=== PATIENT | female | born 1950 | race Caucasian/White ===

== ENCOUNTER 2023-04-27 10:06 | Observation (INO) | payer MEDICARE, BC ==
[2023-04-27 10:38] LABS: BASOPHILS ABSOLUTE AUTO 0.04 10^3/uL (0.00-0.10); BASOPHILS PERCENT AUTO 0.5 % (0.0-1.0); EOSINOPHILS ABSOLUTE AUTO 0.27 10^3/uL (0.10-0.30); EOSINOPHILS PERCENT AUTO 3.5 % (1.0-3.0); IMMATURE GRAN ABSOLUTE AUTO 0.01 10^3/uL (0.00-0.50); IMMATURE GRAN PERCENT AUTO 0.1 % (0.0-5.0); LYMPHOCYTES ABSOLUTE AUTO 2.04 10^3/uL (1.00-4.00); LYMPHOCYTES PERCENT AUTO 26.7 % (20.0-40.0); MEAN CORPUSCULAR HEMOGLOBIN 29.1 pg (27.0-31.0); MEAN CORPUSCULAR HGB CONC 33.3 g/dL (32.0-36.0); MEAN CORPUSCULAR VOLUME 87.2 fL (82.0-92.0); MEAN PLATELET VOLUME 10.5 fL (7.4-10.4); MONOCYTES ABSOLUTE AUTO 0.64 10^3/uL (0.10-0.80); MONOCYTES PERCENT AUTO 8.4 % (2.0-8.0); NEUTROPHILS ABSOLUTE AUTO 4.65 10^3/uL (2.50-7.00); NEUTROPHILS PERCENT AUTO 60.8 % (50.0-70.0); PLATELET COUNT,PLT 203 10^3/uL (150-400); RED BLOOD CELL COUNT 5.16 10^6/uL (3.80-5.50); RED CELL DISTRIBUTION WIDTH 13.7 % (11.5-14.5); WHITE BLOOD CELL COUNT,WBC 7.65 10^3/uL (5.00-10.00)
[2023-04-27 10:52] LABS: ALBUMIN 3.73 g/dL (3.40-5.00); BILIRUBIN TOTAL 0.3 mg/dL (0.2-1.0); CALCIUM 9.6 mg/dL (8.7-10.3); CARBON DIOXIDE,CO2 26.8 mmol/L (21.0-32.0); CREATININE 0.75 mg/dL (0.51-1.17); EST CRCL DRUG DOSING (CG) 62.8 mL/min; POTASSIUM,K 3.8 mmol/L (3.5-5.1); PROTEIN TOTAL,TP 7.6 g/dL (6.4-8.2)
[2023-04-27] MEDS ORDERED: hydrALAZINE 20 MG/ML SDV IVPUSH ONE ×3 (12:21→18:28)
[2023-04-27] MEDS ORDERED: Docusate Sodium 100 MG Cap PO PRN (14:34)
[2023-04-27] MEDS ORDERED: Ondansetron 4 MG/2 ML SDV IV PRN (14:34)
[2023-04-27] MEDS ORDERED: Sodium Chloride 0.9% 10 ML Syringe FLUSH PRN (14:34)
[2023-04-27] MEDS: Enoxaparin 40 MG/0.4 ML Syringe SUBCUT SCH (15:59)
[2023-04-27] MEDS: Spironolactone 25 MG Tab PO SCH (15:59)
[2023-04-27 17:00] LABS: HEMOGLOBIN A1C 5.9 % (4.3-5.7)
[2023-04-27 17:17] LABS: TSH ULTRASENSITIVE 3.215 uIU/mL (0.340-4.820)
[2023-04-27] MEDS: Acetaminophen 325 MG Tab PO PRN (21:16)
[2023-04-28 06:41] LABS: BASOPHILS ABSOLUTE AUTO 0.03 10^3/uL (0.00-0.10); BASOPHILS PERCENT AUTO 0.4 % (0.0-1.0); EOSINOPHILS ABSOLUTE AUTO 0.17 10^3/uL (0.10-0.30); EOSINOPHILS PERCENT AUTO 2.2 % (1.0-3.0); HEMATOCRIT 42.9 % (37.0-47.0); HEMOGLOBIN 14.6 g/dL (12.0-16.0); IMMATURE GRAN ABSOLUTE AUTO 0.02 10^3/uL (0.00-0.50); IMMATURE GRAN PERCENT AUTO 0.3 % (0.0-5.0); LYMPHOCYTES ABSOLUTE AUTO 1.74 10^3/uL (1.00-4.00); LYMPHOCYTES PERCENT AUTO 22.3 % (20.0-40.0); MEAN CORPUSCULAR HEMOGLOBIN 29.5 pg (27.0-31.0); MEAN CORPUSCULAR VOLUME 86.7 fL (82.0-92.0); MEAN PLATELET VOLUME 9.9 fL (7.4-10.4); MONOCYTES ABSOLUTE AUTO 0.66 10^3/uL (0.10-0.80); MONOCYTES PERCENT AUTO 8.4 % (2.0-8.0); NEUTROPHILS PERCENT AUTO 66.4 % (50.0-70.0); PLATELET COUNT,PLT 220 10^3/uL (150-400); RED BLOOD CELL COUNT 4.95 10^6/uL (3.80-5.50); WHITE BLOOD CELL COUNT,WBC 7.82 10^3/uL (5.00-10.00)
[2023-04-28 07:00] LABS: ANION GAP 12.3 mmol/L (5-15); CALCIUM 9.3 mg/dL (8.7-10.3); CARBON DIOXIDE,CO2 26.2 mmol/L (21.0-32.0); CREATININE 0.79 mg/dL (0.51-1.17); EST CRCL DRUG DOSING (CG) 59.62 mL/min; MAGNESIUM 1.9 mg/dL (1.8-2.4); POTASSIUM,K 3.5 mmol/L (3.5-5.1)
[2023-04-28] MEDS ORDERED: LEVOTHYROXINE 100 MCG PO SCH (07:30)
[2023-04-28] MEDS ORDERED: Levothyroxine 100 MCG Tab PO SCH (07:30)
[2023-04-28] MEDS: Acetaminophen 325 MG Tab PO PRN (07:34)
[2023-04-28] MEDS: Spironolactone 25 MG Tab PO SCH (08:04)
[2023-04-28] MEDS: Enoxaparin 40 MG/0.4 ML Syringe SUBCUT SCH (08:06)
[2023-04-28] MEDS ORDERED: HYDROCHLOROTHIAZIDE 25 MG PO SCH (09:00)
[2023-04-28] MEDS ORDERED: Metoprolol Succinate 50 MG Tab.ER PO SCH (09:00)
[2023-04-28] MEDS ORDERED: Losartan 50 MG Tab PO SCH (09:00)
[2023-04-28] MEDS ORDERED: Hydrochlorothiazide 12.5 MG Cap PO SCH (09:00)
[2023-04-28] MEDS ORDERED: LOSARTAN 100 MG PO SCH (09:00)
[2023-04-28] MEDS ORDERED: METOPROLOL SUCCINATE 50 MG PO SCH (09:00)
[2023-04-28 10:17] VITALS: PULSE 60
[2023-04-28] MEDS ORDERED: amLODIPine 5 MG Tab PO SCH (11:00)
[2023-04-28 11:22] VITALS: BP 153/85
== END 2023-04-28 12:19 | disposition home or self-care (01) ==
LOC: KA.ED 10:06 → KA.MS 14:07
PROVIDERS: ADMIT Family Medicine; ATTEND Family Medicine
DX: I16.1 Hypertensive emergency (principal); I10 Essential (primary) hypertension; R00.1 Bradycardia, unspecified; H26.9 Unspecified cataract; E78.00 Pure hypercholesterolemia, unspecified; E03.9 Hypothyroidism, unspecified; M10.9 Gout, unspecified; E66.9 Obesity, unspecified; F17.210 Nicotine dependence, cigarettes, uncomplicated; Z88.8 Allergy status to other drugs, medicaments and biological substances; Z79.890 Hormone replacement therapy; Z79.899 Other long term (current) drug therapy
CPT/HCPCS: 36415; 71046; 80048; 80053; 80061; 83036; 83735; 84443; 84484; 85025; 93005; A9270; J0360; J1650; Q3014; 93010; 96374; 96376; 99284; 99284-25